=== PATIENT | male | born 1965 | race Caucasian/White ===

== ENCOUNTER 2017-08-01 09:27 | Emergency (ER) | payer BC, OTHER ==
[~2017-08-01] VITALS: Ht 177.8 cm; Wt 113.6 kg
[~2017-08-01 09:27] MED LIST: ASPIRIN81 M2 PO; ATENOLOL-CHLOR1 EAC1 PO; ATORVASTATIN CA40 MG PO; BROMOCRIPTINE2.5 MG PO; COZAAR100 MG PO; KEFLEX500 MG PO; KLOR-CON M2020 MEQ PO; LEVOTHYROXINE150 MCG PO; NIFEDICAL XL30 MG PO; PERCOCET 5/31 TABLET PO; VITAMIN D31000 UNIT PO
[2017-08-01 12:58] LABS: INTER. NORMALIZED RATIO 3.4
[2017-08-01 14:39] VITALS: BP 114/57
== END 2017-08-01 14:40 | disposition home or self-care (01) ==
LOC: EME 09:27
PROVIDERS: Physician Assistant
DX: M79.662 Pain in left lower leg (principal); Z95.1 Presence of aortocoronary bypass graft; Z95.2 Presence of prosthetic heart valve
CPT/HCPCS: 85610; 93971; 99281; 99284

== ENCOUNTER 2017-12-31 09:32 | Inpatient (IN) | payer BC, OTHER ==
[~2017-12-31] VITALS: Ht 177.8 cm; Wt 112.6 kg
[~2017-12-31 09:32] MED LIST changes: +ASPIR 8181 M1 PO; -ASPIRIN81 M2 PO; +ATORVASTATIN CA80 MG PO
[2017-12-31 10:10] VITALS: BP 133/70
[2017-12-31 10:26] LABS: HEMATOCRIT 46.1 % (38.0-50.0); HEMOGLOBIN 14.2 G/DL (12.5-16.6); MCH 28.2 PG (29.0-34.0); MCHC 30.8 G/DL (30.0-36.0); MCV 91.7 FL (86-99); PLATELET COUNT 281 K/uL (156-360); RBC DIS.WIDTH-CV 16.6 % (11.8-14.6); RBC DIS.WIDTH-SD 55.8 % (39-53); RED BLOOD COUNT 5.03 M/uL (4.00-5.50); WHITE BLOOD COUNT 8.8 K/uL (4.1-10.2)
[2017-12-31] MEDS ORDERED: LASIX40 MG PO (10:46)
[2017-12-31] MEDS ORDERED: KLOR-CON M2020 MEQ PO (10:47)
[2017-12-31] MEDS ORDERED: LEVOTHYROXINE125 MCG PO (10:48)
[2017-12-31] MEDS ORDERED: PANTOPRAZOLE SO40 MG PO (10:49)
[2017-12-31] MEDS ORDERED: METOPROLOL SUCC25 MG PO (10:49)
[2017-12-31 10:50] LABS: ALKALINE PHOSPHATASE 74 IU/L (3-129); ALT (GPT) 14 IU/L (3-49); AST (GOT) 23 IU/L (2-34); CHLORIDE 104 MEQ/L (99-109); CREATININE 0.9 MG/DL (0.6-1.3); GFR ESTIMATE (CALCULATED) > 59 mL/min/ (58.99-99999); GLUCOSE 104 mg/dL (70-99); POTASSIUM 4.1 MEQ/L (3.7-5.4); PTT 35.1 SEC (25-37); SODIUM 140 MEQ/L (136-147); TOTAL BILIRUBIN 2.1 MG/DL (0.0-1.0); TOTAL PROTEIN 7.8 G/DL (6.4-8.3); UREA NITROGEN (BUN) 16 mg/dL (9-23)
[2017-12-31] MEDS ORDERED: COUMADIN4 MG PO (10:50)
[2017-12-31 10:51] LABS: INTER. NORMALIZED RATIO 1.7
[2017-12-31] MEDS ORDERED: VITAMIN D2000 UNI1 PO (13:54)
[2017-12-31] MEDS ORDERED: FOLIC ACID0.4 MG PO (13:54)
[2017-12-31 16:10] VITALS: BP 125/81
[2017-12-31 16:12] VITALS: BP 114/63
[2017-12-31 19:29] VITALS: BP 109/55
[2017-12-31 23:57] VITALS: BP 142/65
[2018-01-01 03:10] VITALS: BP 118/69
[2018-01-01 07:18] VITALS: BP 120/61
[2018-01-01 10:52] VITALS: BP 122/58
[2018-01-01 16:45] VITALS: BP 106/54
[2018-01-01 23:32] VITALS: BP 113/69
[2018-01-02 00:23] VITALS: BP 117/65
[2018-01-02 07:42] VITALS: BP 125/63
[2018-01-02 15:50] VITALS: BP 108/58
[2018-01-03 00:18] VITALS: BP 130/65
[2018-01-03 06:44] LABS: HEMATOCRIT 45.1 % (38.0-50.0); HEMOGLOBIN 13.9 G/DL (12.5-16.6); MCH 28.3 PG (29.0-34.0); MCHC 30.8 G/DL (30.0-36.0); MCV 91.9 FL (86-99); PLATELET COUNT 281 K/uL (156-360); RBC DIS.WIDTH-CV 16.5 % (11.8-14.6); RBC DIS.WIDTH-SD 55.8 % (39-53); RED BLOOD COUNT 4.91 M/uL (4.00-5.50); WHITE BLOOD COUNT 9.2 K/uL (4.1-10.2)
[2018-01-03 06:51] LABS: INTER. NORMALIZED RATIO 1.2
[2018-01-03 06:54] LABS: PTT 69.2 SEC (25-37)
[2018-01-03 07:45] VITALS: BP 140/67
[2018-01-03 14:29] VITALS: BP 125/60
[2018-01-03 18:07] VITALS: BP 114/57
[2018-01-03 20:48] VITALS: BP 98/57
[2018-01-03 23:42] VITALS: BP 123/59
[2018-01-04 03:58] VITALS: BP 115/53
[2018-01-04 05:53] LABS: HEMATOCRIT 42.1 % (38.0-50.0); MCH 28.3 PG (29.0-34.0); MCHC 30.9 G/DL (30.0-36.0); MCV 91.7 FL (86-99); PLATELET COUNT 276 K/uL (156-360); RBC DIS.WIDTH-CV 16.5 % (11.8-14.6); RBC DIS.WIDTH-SD 55.1 % (39-53); RED BLOOD COUNT 4.59 M/uL (4.00-5.50); WHITE BLOOD COUNT 8.7 K/uL (4.1-10.2)
[2018-01-04 06:04] LABS: INTER. NORMALIZED RATIO 1.3
[2018-01-04 06:12] LABS: PTT 79.5 SEC (25-37)
[2018-01-04 08:29] VITALS: BP 136/69
[2018-01-04 11:37] VITALS: BP 114/69
[2018-01-04 16:00] VITALS: BP 145/68
[2018-01-04 18:25] LABS: INTER. NORMALIZED RATIO 1.4
[2018-01-04 18:28] LABS: PTT 67.9 SEC (25-37)
[2018-01-04 20:30] VITALS: BP 108/55
[2018-01-05 00:12] VITALS: BP 129/62
[2018-01-05 03:45] VITALS: BP 116/58
[2018-01-05 06:16] LABS: HEMATOCRIT 46.7 % (38.0-50.0); HEMOGLOBIN 14.6 G/DL (12.5-16.6); MCH 28.6 PG (29.0-34.0); MCHC 31.3 G/DL (30.0-36.0); MCV 91.4 FL (86-99); PLATELET COUNT 288 K/uL (156-360); RBC DIS.WIDTH-CV 16.7 % (11.8-14.6); RBC DIS.WIDTH-SD 55.6 % (39-53); RED BLOOD COUNT 5.11 M/uL (4.00-5.50); WHITE BLOOD COUNT 8.7 K/uL (4.1-10.2)
[2018-01-05 06:34] LABS: INTER. NORMALIZED RATIO 1.5
[2018-01-05 08:30] VITALS: BP 120/62
[2018-01-05 16:12] VITALS: BP 104/59
[2018-01-06] VITALS: BP 110/59
[2018-01-06 06:14] LABS: INTER. NORMALIZED RATIO 1.6
[2018-01-06 06:16] LABS: PTT 79.7 SEC (25-37)
[2018-01-06 08:16] VITALS: BP 121/59
[2018-01-06 16:10] VITALS: BP 127/65
[2018-01-06 23:56] VITALS: BP 109/59
[2018-01-07 03:47] VITALS: BP 166/84
[2018-01-07 06:46] LABS: HEMATOCRIT 46.5 % (38.0-50.0); HEMOGLOBIN 14.6 G/DL (12.5-16.6); MCH 28.6 PG (29.0-34.0); MCHC 31.4 G/DL (30.0-36.0); PLATELET COUNT 298 K/uL (156-360); RBC DIS.WIDTH-CV 16.8 % (11.8-14.6); RED BLOOD COUNT 5.11 M/uL (4.00-5.50); WHITE BLOOD COUNT 8.9 K/uL (4.1-10.2)
[2018-01-07 06:48] LABS: INTER. NORMALIZED RATIO 1.8
[2018-01-07 07:45] VITALS: BP 115/64
[2018-01-07] MEDS ORDERED: COUMADIN5 MG PO (11:43)
== END 2018-01-07 13:25 | disposition home or self-care (01) | DRG 949 ==
LOC: 2EAST 09:32 → ENRESERV 09:43 → 2EAST 09:51
PROVIDERS: Internal Medicine; Specialist
PROC: 0DBM8ZX Excision of Descending Colon, Via Natural or Artificial Opening Endoscopic, Diagnostic (ICD-10-PCS; principal; 2018-01-03)
DX: Z51.81 Encounter for therapeutic drug level monitoring (principal); Z12.11 Encounter for screening for malignant neoplasm of colon; D12.4 Benign neoplasm of descending colon; Z79.01 Long term (current) use of anticoagulants; I48.92 Unspecified atrial flutter; I48.91 Unspecified atrial fibrillation; Z95.2 Presence of prosthetic heart valve; K57.30 Diverticulosis of large intestine without perforation or abscess without bleeding; I10 Essential (primary) hypertension; I25.10 Atherosclerotic heart disease of native coronary artery without angina pectoris; E78.5 Hyperlipidemia, unspecified; Z95.0 Presence of cardiac pacemaker; K21.9 Gastro-esophageal reflux disease without esophagitis; E11.9 Type 2 diabetes mellitus without complications; K64.8 Other hemorrhoids; Z79.82 Long term (current) use of aspirin; Z86.010 Personal history of colon polyps; Z95.1 Presence of aortocoronary bypass graft; E66.9 Obesity, unspecified; Z68.35 Body mass index [BMI] 35.0-35.9, adult
CPT/HCPCS: 36415; 80053; 82948; 85027; 85610; 85730; 87641; 88305; 93005; 94660; J2704